=== PATIENT | male | born 1985 | race Native Hawaiian/Other Pacific Islander ===

== ENCOUNTER 2023-10-22 13:03 | Emergency (ER) | payer SELFPAY ==
[2023-10-22] MEDS: PHENobarbital 65 MG/ML VIAL 260 MG IV (13:15)
[2023-10-22] MEDS: ONDANSETRON 4 MG/2 ML INJ IV (13:15)
--- NOTE | 2023-10-22 13:16 | ED.ALCOHOL ---
HPI - Alcohol General Chief Complaint: Toxicology Problem Stated Complaint: ETOH withdrawl Time Seen by Provider: 10/22/23 13:14 History of Present Illness HPI narrative: Patient is a 38-year-old male with known alcohol abuse presenting today with anxiety and withdrawal symptoms. He reports that he drinks a 5th of vodka daily, he drank his normal amount yesterday he has not had anything to drink since last night. This morning was his quit date he has not had anything to drink but feels severe anxiety. He previously was prescribed gabapentin and propranolol when he last went through withdrawal. He is feeling very anxious but not tachycardic. He is wanting medication to detox at home. He previously went to a detox center he did not personally outpatient follow-up. He reports that he has pretty severe anxiety and drinks to help the anxiety Related Data Previous Rx's Medication Instructions Recorded chlordiazepoxide HCl 25 mg capsule 25 mg PO BID PRN alcohol 10/22/23 withdrawal #32 caps Allergies Allergy/AdvReac Type Severity Reaction Status Date / Time No Known Drug Allergies Allergy Verified 10/22/23 13:24 Patient History Social History Smoking Status: Current every day smoker Exam Initial Vital Signs Initial Vital Signs: Vital Signs Temperature 98.3 F 10/22/23 13:17 Pulse Rate 82 10/22/23 13:17 Respiratory Rate 16 10/22/23 13:17 Blood Pressure 174/94 H 10/22/23 13:17 Pulse Oximetry 96 10/22/23 13:17 Oxygen Delivery Method Room Air 10/22/23 13:17 GENERAL: Alert well-appearing 38-year-old HEENT: Head atraumatic,EOMI, pupils reactive, face symmetric, moist mucous membranes CARDIOVASCULAR: Regular rate and rhythm without murmurs, rubs or gallops. RESPIRATORY: Breath sounds equal bilaterally, no wheezes rales or rhonchi. ABDOMEN: Soft, nontender. Normoactive bowel sounds all 4 quadrants. No guarding or rebound. EXTREMITIES: Normal range of motion, no clubbing or edema. Neurovascularly intact NEUROLOGICAL: Alert and oriented x4 SKIN: Warm, dry, no laceration, no petechiae, no rashes or lesions. Course Orders Ordered: ED Orders 10/22/23 13:05 Acetaminophen Stat Complete Blood Count AUTO DIFF Stat Comprehensive Metabolic Panel Stat Ethanol (ETOH) Stat Free T4, Direct Thyroxine Stat Salicylate Stat Thyroid Stimulating Hormone Stat 10/22/23 14:06 [place] [facility] [place] Word Processing Operator Stat 10/22/23 14:50 Urine Drug Screen, Rapid Stat Discontinued Medications Sodium Chloride (Normal Saline 0.9%) 1,000 mls @ 1,000 mls/hr IV BOLUS ONE Stop: 10/22/23 14:49 Last Infusion: 10/22/23 16:07 Dose: Infused Documented By: Admin: 10/22/23 13:54 Dose: 1,000 mls/hr Documented By: MARIANA Lorazepam (Lorazepam 2 Mg/Ml Inj) 1 mg IV NOW ONE Stop: 10/22/23 13:38 Last Admin: 10/22/23 13:53 Dose: 1 mg Documented By: MARIANA Ondansetron HCl (Ondansetron 4 Mg/2 Ml Inj) 4 mg IV NOW ONE Stop: 10/22/23 13:11 Last Admin: 10/22/23 13:15 Dose: 4 mg Documented By: MARIANA Phenobarbital (Phenobarbital 65 Mg/Ml Vial) 260 mg IV NOW ONE Stop: 10/22/23 13:11 Last Admin: 10/22/23 13:15 Dose: 260 mg Documented By: MARIANA Vital Signs Vital signs: Vital Signs - 8 hr 10/22/23 13:17 10/22/23 14:00 10/22/23 14:00 Temperature 98.3 F Pulse Rate 82 78 Respiratory Rate 16 16 Blood Pressure 174/94 H 134/90 Pulse Oximetry 96 95 Oxygen Delivery Method Room Air 10/22/23 14:30 10/22/23 14:30 10/22/23 14:50 Temperature Pulse Rate 81 82 Respiratory Rate 17 12 Blood Pressure 143/85 H Pulse Oximetry 96 96 Oxygen Delivery Method 10/22/23 14:50 10/22/23 15:00 10/22/23 15:00 Temperature Pulse Rate 90 Respiratory Rate 21 Blood Pressure 147/88 H 149/92 H Pulse Oximetry 96 Oxygen Delivery Method 10/22/23 16:08 Temperature 98.3 F Pulse Rate 81 Respiratory Rate 16 Blood Pressure 141/83 H Pulse Oximetry 96 Oxygen Delivery Method Room Air MDM - Alcohol Lab Data 10/22/23 13:05 10/22/23 13:05 Labs: Lab Results 10/22/23 10/22/23 Range/Units 13:05 14:50 WBC 10.9 (4.5-11.0) X10^3/uL RBC 4.49 L (4.5-5.9) X10^6/uL Hgb 14.6 (13.5-17.5) g/dL Hct 43.2 (41-53) % MCV 96.2 (80-100) fL MCH 32.4 (26-34) PG MCHC 33.7 (30-36) % RDW 13.5 (11.6-14.8) % Plt Count 313 (150-400) X10^3/uL Neut % (Auto) 69.0 (50-75) % Lymph % (Auto) 17.8 L (25-40) % [place] % (Auto) 10.9 (3-14) % Eos % (Auto) 1.6 L (2-4) % Baso % (Auto) 0.7 (0-2) % Neut # (Auto) 7500 H (9115-0994) /uL Lymph # (Auto) 1900 (1765-7201) /uL [place] # (Auto) 1200 H (0-900) /uL Eos # (Auto) 200 (0-450) /uL Baso # (Auto) 100 (0-100) /uL Sodium 142 (137-145) mmol/L Potassium 3.6 (3.4-5.1) mmol/L Chloride 104 (98-107) mmol/L Carbon Dioxide 29 (22-32) mmol/L BUN 8 L (9-20) mg/dL Creatinine 0.71 (0.66-1.25) mg/dL Estimated GFR > 60 (>60) mL/min BUN/Creatinine Ratio 11.3 (6-22) Glucose 127 H (70-100) mg/dL Calcium 9.8 (8.4-10.2) mg/dL Total Bilirubin 2.0 H (0.2-1.3) mg/dL AST 186 H (17-59) IU/L ALT 114 H (<50) IU/L Alkaline Phosphatase 101 (38-126) U/L Total Protein 8.4 H (6.3-8.2) g/dL Albumin 5.0 (3.5-5.0) g/dL Globulin 3.4 (1.7-4.1) g/dL Albumin/Globulin Ratio 1.5 (1.0-2.8) TSH 1.31 (0.47-4.68) uIU/mL Free T4 0.83 (0.78-2.19) ng/dL Salicylates < 1.0 (<20) mg/dL U Opiates 300ng/mL cut Negative (Negative) Ur Oxycodone Screen Negative (Negative) Urine Methadone Screen Negative (Negative) Acetaminophen < 10 (10-30) ug/mL Ur Barbiturates Screen Negative (Negative) U Tricyclic Antidepress Negative (Negative) Ur Phencyclidine Scrn Negative (Negative) Ur Amphetamines Screen Negative (Negative) U Methamphetamines Scrn Negative (Negative) Ur MDMA Scrn (Ecstasy) Negative (Negative) U Benzodiazepines Scrn Negative (Negative) Urine Cocaine Screen Negative (Negative) U Marijuana (THC) Screen Negative (Negative) Urine pH Normal (Normal) Urine Specific [place] Normal (Normal) Ethyl Alcohol < 10 ( - 10) mg/dL Ur Creatinine Normal (Normal) Urine Dip Bedside Urine Glucose Negative Bedside Urine Bilirubin - Negative Bedside Urine Ketone + 15 Urine Specific [place] 1.015 Bedside Urine Occult Blood - Negative Bedside Urine pH 6.5 Bedside Urine Protein - Negative Bedside Urine Urobilinogen - Negative Bedside Urine Nitrite - Negative Bedside Urine Leukocytes - Negative Esterase MDM Narrative Medical decision making narrative: Patient is a 38-year-old male with history of alcohol abuse presenting today with eggs IUD and mild withdrawal symptoms. He has not had drink since last night alcohol level is negative. He has not tachycardic he is given phenobarbital and Ativan which have helped him significantly. He reports that he drinks a 5th of liquor daily. Long straight for discussion with him and his partner about needing detox and risk of alcohol withdrawal complications. He plan to quit date which was today he took Tuesday off work and he is planning on going through withdrawal this weekend. Discussed how he would do better often detox strongly encouraged him for intensive outpatient treatment. Blood work reviewed: WBC 10.9, hemoglobin 14.6, hematocrit 43.2, MCV 96.2, 313, sodium 142, potassium 3.6, chloride 104, carbon dioxide 29, BUN 8, creatinine 0.7, glucose 127, bilirubin 2.0, AST 186, ALT 114, Patient has no right upper quadrant pain but he does have elevated bilirubin and liver enzymes likely secondary to alcohol abuse. Patient was evaluated by social work he declined detox for him as well Due to the fact that patient set a quit date he is determined to quit drinking alcohol I will give him some Librium discussed with patient's partner and patient that he may still have withdrawal symptoms while taking this medication. Strongly encouraged him to come back at any time for any sort of symptoms including seizure hallucinations and severe anxiety. Both patient and partner understand Discharge Plan Departure Patient Disposition: Home Clinical Impression: Alcohol withdrawal, Alcohol abuse Instructions: DI for Delirium Tremens, DI for Alcohol Use Disorder Activity Restrictions/Additional Instructions: *You have been diagnosed with alcohol withdrawal *What to do: I strongly encourage you to get intensive outpatient treatment. Do not drive or operate heavy machinery while taking medication. You are still high at risk for seizures and complications including while withdrawing alcohol *Continue to take medications as directed Librium 50 mg every 4 hours for day 1, 50 mg every 6 hours day 2, 50 mg every 8 hours day 3, 50 mg every 12 hours day 2, 50 mg once *Follow up with your primary care provider in 2-3 days or call [phone] *Return to ER if you should have shaking confusion seizures, hallucinations or any new, worsening or concerning symptoms CONTROLLED SUBSTANCE DISCHARGE (Narcotoic/benzodiazepine/Flexeril/Phenergan) 1. You have been prescribed narcotic medications, it does have acetaminophen/Tylenol/paracetamol in it, DO NOT TAKE MORE THAN 4,00mg in 24 hours of Tylenol. TRAMADOL DOES NOT CONTAIN TYLENOL 2. Please understand that we cannot provide further refills of narcotics, benzodiazepines or controlled substances through the ED and her pain management will need to be through your provider. 3. While on these medications you cannot drive or operate heavy machinery. 4. You cannot sign legal documents or perform any duties such as this. 5. As long as you're taking opiate pain medications he should also be taking a stool softener such as Colace, Dulcolax, MiraLAX or prune juice, to help avoid constipation. Prescriptions: New chlordiazepoxide HCl 25 mg capsule 25 mg PO BID PRN (Reason: alcohol withdrawal) Qty: 32 0RF Rx Instructions: Day 1: 50 mg Q 4h, day 2 50 mg q.6 hr, day 3 50 mg Q 8h, Day 4 50mg q 12hr, day 5 50 mg x1 Referrals: Miscellaneous,Doctor, MD [Primary Care Provider] - Stand Alone Forms: Patient Portal/API
[2023-10-22 13:17] VITALS: BP 174/94; PULSE 82; RESP 16; TEMP 36.8; O2SAT 96; BMI 23.7
[2023-10-22 13:22] LABS: Add Manual Diff / Slide Review NO; Basophils Absolute Auto 100 /uL (0-100); Basophils Percent Auto 0.7 % (0-2); Eosinophils Absolute Auto 200 /uL (0-450); Eosinophils Percent Auto 1.6 % (2-4); Hematocrit 43.2 % (41-53); Hemoglobin 14.6 g/dL (13.5-17.5); Lymphocytes Absolute Auto 1900 /uL (1100-4500); Lymphocytes Percent Auto 17.8 % (25-40); Mean Corpuscular HGB Conc 33.7 % (30-36); Mean Corpuscular Hemoglobin 32.4 PG (26-34); Mean Corpuscular Volume 96.2 fL (80-100); Monocytes Absolute Auto 1200 /uL (0-900); Monocytes Percent Auto 10.9 % (3-14); Neutrophils Absolute Auto 7500 /uL (1500-7000); Platelet Count 313 X10^3/uL (150-400); Red Blood Cell Count 4.49 X10^6/uL (4.5-5.9); Red Cell Distribution Width 13.5 % (11.6-14.8); White Blood Cell Count 10.9 X10^3/uL (4.5-11.0)
--- NOTE | 2023-10-22 13:23 | PC.NURSE ---
Pt reports one episode of vomiting this morning but does not current have nausea.
[2023-10-22 13:38] LABS: Acetaminophen < 10 ug/mL (10-30); Alanine Aminotransferase 114 IU/L (<50); Albumin Globulin Ratio 1.5 (1.0-2.8); Alkaline Phosphatase 101 U/L (38-126); Aspartate Aminotransferase 186 IU/L (17-59); BUN Creatinine Ratio 11.3 (6-22); Blood Urea Nitrogen 8 mg/dL (9-20); Calcium 9.8 mg/dL (8.4-10.2); Carbon Dioxide 29 mmol/L (22-32); Chloride 104 mmol/L (98-107); Estimated Glomerular Filt Rate > 60 mL/min (>60); Ethanol (ETOH) < 10 mg/dL; Globulin 3.4 g/dL (1.7-4.1); Glucose 127 mg/dL (70-100); HEMOLYSIS < 15 (0-50); Potassium 3.6 mmol/L (3.4-5.1); Salicylate < 1.0 mg/dL (<20); Sodium 142 mmol/L (137-145); Total Protein 8.4 g/dL (6.3-8.2)
[2023-10-22] MEDS: LORazepam 2 MG/ML INJ 1 MG IV (13:53)
[2023-10-22] MEDS: SODIUM CHLORIDE 0.9% 1,000 ML 1000 ML IV (13:54)
[2023-10-22 14:00] VITALS: BP 134/90; PULSE 78; RESP 16; O2SAT 95
[2023-10-22 14:10] LABS: Free T4, Direct Thyroxine 0.83 ng/dL (0.78-2.19)
[2023-10-22 14:24] LABS: Thyroid Stimulating Hormone 1.31 uIU/mL (0.47-4.68)
[2023-10-22 14:30] VITALS: BP 143/85; PULSE 81; RESP 17; O2SAT 96
[2023-10-22 14:50] VITALS: BP 147/88; PULSE 82; RESP 12; O2SAT 96
[2023-10-22 15:00] VITALS: BP 149/92; PULSE 90; RESP 21; O2SAT 96
[2023-10-22 15:04] LABS: UR Morphine/Opiate cutoff 300 Negative (Negative); Ur Creatinine Normal (Normal); Ur Specific Gravity Normal (Normal); Urine Amphetamines Negative (Negative); Urine Barbiturates Negative (Negative); Urine Benzodiazepines Negative (Negative); Urine Cocaine Negative (Negative); Urine MDMA Negative (Negative); Urine Methadone Negative (Negative); Urine Methamphetamines Negative (Negative); Urine Oxycodone Negative (Negative); Urine Phencyclidine Negative (Negative); Urine Tetrahydrocannabinol Negative (Negative); Urine Tricyclic Antidepressant Negative (Negative); Urine pH Normal (Normal)
--- NOTE | 2023-10-22 15:46 | CM.SWNOTE ---
ED RESIDENCE COUNSELOR Assessment RESIDENCE COUNSELOR - Child Care Education Coordinator Assessment RESIDENCE COUNSELOR - Child Care Education Coordinator Assessment Start: 10/22/23 13:48 Freq: Status: Active Protocol: Document 10/22/23 14:44 BDL (Rec: 10/22/23 15:46 BDL [id number]) RESIDENCE COUNSELOR/Child Care Education Coordinator Assessment Time Spent with Patient Start date 10/22/23 Visit Start Time 14:00 End date 10/22/23 Visit End Time 14:40 Total time Care Management spent on 40 min patient visit-in minutes Substance Abuse Screening Include Onset, Duration, Intensity Presenting Problem Pt present to the ed due to ETOH withdrawals including tremors. Pt reports his last drink was between 9-10 pm last night and he typically drinks 1/5th of vodka a day. Precipitating Event(s) PT reports he began drinking at age 25 casually w/ friends. Pt reports that him and his partner briefly lived w/ a a man who was an alcoholic and partier. It was easy to drink and just alliance party. It was disclosed that throughout pt's 's he would carry a bottle around w/ him to sandy. Pt's partner stated I didn't think anything of it back then but looking back it was a problem. Pt reports that w/ his work it is easy to have a casual drink here or there. Pt reports that he tends to drink when he is bored just to have something to do and also acknowledges anxiety as a reason for drinking. Patient Strengths Determination/commitment. Current Behavioral Health Provider(s) Pt does not have any current Include Facility, Provider, Ph. # providers. Pt reports that in 2021 he was set up w/ [facility] to follow up with [facility] but did not end up following up w/ those services. Family Hx of Behavioral Abuse Pt and partner both report that they come from families where casual drinking is normal. Pt did not endorse any other substance use. Rehab Facilities? ((Date(s), Location(s) Pt reports in February 2022 he ) was in a hospital in [place] for detox services. Pt did not remember the name of the facility. History of Withdrawal? Seizures? Pt has hx of withdrawals including tremors and extreme anxiety. Pt denies hx of seizures. Longest Period of Sobriety Never, it's always just been a habit of mine to come home from work and have a drink... 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 Psychosocial information & Support Family has the support of his Systems partner, his mom, as well as friends. Per pt's partner he has all the supports he just needs to want it too. 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 Pt reports that he has been impacted by side effects of his alcohol use while working. Pt also reports that he could be doing more on the computer for work instead of having a drink at times. Legal Concerns Legal Matters - Outstanding Issues None reported. Mental Status Orientation (Person/Place/Time) a/o x3. Stated Mood Tired. Affect (Congruent with Mood?) Dysphoric, flat, labile, congruent w/ mood. Thought Content - Specify/Describe There are alcoholics then Obsessions, Delusions, Hallucinations there is being alcohol dependent... I'd put myself in that class. I just get this pressure behind my eyes and then I need a drink. Anxiety. Thought Processes (Wtajyat-Afetmclq-Cnsi Logical/Coherent. Gpsuuiny-Vmlscvfr-Lqdhwtjcxw- Jrjeqxwjwiyjem-Dmwcspp-Szcfodddyesi- Thought Blocking) Speech (Jzbfce-Bavl-Kclchjg-Rapid-Soft- Slow/soft. Loud-Pressured) Motor (Jnxbgc-Uiovftomy-Xpzm-Other) Slow. Insight (Ozmi-Pucy-Gzqs/Limited) Poor/limited. Judgement (Uiax-Rgug-Wtpd/Limited) Poor/limited. Impulse Control (Adequate-Impaired) Impaired. Memory (Rsulsrsli-Mztxwn-Pzqjed, Intact. Impaired-Intact) Concentration (Intact-Impaired) Impaired. Pt fell asleep mid conversation w/ partner. Attention (Intact-Impaired) Intact. Behavior (Appropriate-Inappropriate) Appropriate. Risk Assessment Suicidal Ideation (Plan) No Homicidal Ideation (Plan) No Comment Pt denies current SI/HI. Pt reports semi recently having thoughts of suicide. Pt made comments such as It's normal to have some thoughts of suicide or like what you would do when you who gets what . When asked about a plan or intent pt responded I could get there. Pt denies ever having intent or a plan but partner was concerned he may be down playing the situation. Intervention Intervention Pt is a 38 y/o female who presents to the ED for ETOH withdrawal. Pt lives in [place] w/ his partner who is present at bedside. RESIDENCE COUNSELOR enters the room to meet w/ pt. Pt is lying in bed w/ heavy eyes. Pt's partner is at bedside. RESIDENCE COUNSELOR speaks w/ pt who reports he is feeling tired. PT discloses to RESIDENCE COUNSELOR hx of alcohol use starting at age 25. Pt reports it began as casual drinking and slowly turned into a daily habit. Pt reports things got worse when living in [place] w/ a friend that was described as an alcoholic. Pt's partner disclosed throughout his 20's pt would carry a bottle of alcohol w/ him everywhere he went. Pt believes his primary reason for drinking is anxiety. I don't know if it's anxiety because I have that or if it's anxiety about my next drink. RESIDENCE COUNSELOR reflected w/ pt who then stated he believes it is the alcohol. Pt's partner is concerned that even if the anxiety goes away from alcohol that she can see other little stressors in his life that could lead to a relapse. Pt reports he feels like 3/10 he would have a relapse in the near future. Pt's partner stated her concern is Much higher. Pt reports in February of 2022 he was in an inpatient detox facility connected to a mental health hospital. Pt believes this was in [place] but could not remember the facility name. Pt reports he began receiving services at [facility] that same year but did nto follow up w/ outpatient services. Pt also reported that in that same year he attended one AA meeting but chose not to follow up. That was interesting it wasn't what I thought it was. Pt reports that he has needed a drink in the morning to help settle his nerves and also reports that family and friends have been annoyed and concerned w/ his alcohol use. It is reported that pt's family are casual drinkers. When asked by his partner if he could manage going to a gathering w/ alcohol pt responded I'd be more concerned if there wasn't alcohol. Pt and partner have recently moved back to [place] after living in [place]. 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 Pt reports that he would like to go home w/ medications and manage on his own. RESIDENCE COUNSELOR discussed possible other options including detox and those benefits. Pt declined and insisted on going home w/ meds. It is the opinion of this RESIDENCE COUNSELOR that the pt would greatly benefit from inpatient detox w / follow up MH/ANMOL services. RESIDENCE COUNSELOR discussed this w/ ED provider who indicated agreement and understanding. Plan RA Plan Pt to be further evaluated medically. MATTIE Fagan, WOLF
[2023-10-22 16:08] VITALS: BP 141/83; PULSE 81; RESP 16; TEMP 36.8; O2SAT 96
== END 2023-10-22 16:09 | disposition home or self-care (01) ==
PROVIDERS: Physician Assistant Medical; Emergency Provider Emergency Medicine
DX: F10.139 Alcohol abuse with withdrawal, unspecified (principal)
CPT/HCPCS: 36415; 80053; 80305; 80320; 80329; 81003; 84439; 84443; 85025; 96374; 96375; 99284; G0480; J2060; J2405; J2560

== ENCOUNTER 2024-03-17 08:45 | Emergency (ER) | payer SELFPAY ==
[2024-03-17] VITALS (9 sets, daily range): BP systolic 105–139; BP diastolic 64–96; PULSE 68–87; RESP 14–18; TEMP 36.8; O2SAT 97–99; BMI 23.7
--- NOTE | 2024-03-17 08:53 | ED.GENADULT ---
HPI - General Adult General Chief complaint: Toxicology Problem Stated complaint: detoxing off alcohol Time Seen by Provider: 03/17/24 08:53 History of Present Illness HPI narrative: Patient is a 38-year-old male with past medical history of alcohol abuse comes into the ED for evaluation of multiple complaints. States that yesterday he did drink a 5th of vodka, states that he was sober week prior to that. States that he is trying to detox from this. Currently not complaining of any suicidal or homicidal ideations. During evaluation started complaining of some chest tightness but no shortness of breath. He denies any other symptoms such as headache visual disturbances fever chills nausea vomiting abdominal pain or any other GI/ some time. States that he did go through outpatient detox in the past. Related Data Previous Rx's Medication Instructions Recorded chlordiazepoxide HCl 25 mg capsule 25 mg PO BID PRN alcohol 10/22/23 withdrawal #32 caps Allergies Allergy/AdvReac Type Severity Reaction Status Date / Time No Known Drug Allergies Allergy Verified 03/17/24 08:53 Review of Systems Review of Systems Narrative: HEENT: Denies headache, eye drainage, eye irritation, head trauma, sore throat, voice change, positive for alcohol abuse Cardiovascular: Positive for chest pain Respiratory: Denies any shortness of breath, cough, wheeze, stridor GI/: Denies any abdominal pain, nausea, vomiting, diarrhea, bright red blood per rectum, melanotic stools, urinary frequency, urinary retention, dysuria, hematuria MSK: Denies any joint pain, muscle pains, swelling Skin: Denies any rashes, lesions, discoloration Neuro: Denies any headache, lightheadedness, dizziness, fainting, weakness Psych: Denies SI/HI Patient History Social History Smoking Status: Current every day smoker Smoking Status: Current every day smoker tobacco type: cigarettes alcohol intake frequency: 3 or more drinks per day Alcohol type: hard liquor Substance Use Type: marijuana Exam Narrative Exam Narrative: General: Cooperative, comfortable, well-developed, not in acute distress HEENT: Normocephalic, atraumatic, PERRLA, normal sclera, eyelids normal, Neck: Active full range of motion, atraumatic Chest: Normal to inspection, negative crepitus, no overlying erythema ecchymosis Respiratory: Normal respiratory effort, not in acute respiratory distress, clear to auscultation bilaterally negative cough, wheeze, tachypnea, rhonchi, rales Cardiology: Regular rate rhythm negative gallop, murmur, rubs GI/: Normal to inspection, soft, nonrigid, no tenderness to palpation, exam deferred MSK: Full range of active range of motion of all 4 extremities, atraumatic Skin: No rashes lesions noted Neuro: Alert awake oriented x3, moves all 4 extremities spontaneously, cranial nerves intact, able to answer all questions appropriately follows commands appropriately Psych: Cooperative, negative suicidal or homicidal ideations, positive anxiety Initial Vital Signs Initial Vital Signs: Vital Signs Temperature 98.2 F 03/17/24 08:46 Pulse Rate 83 03/17/24 08:46 Respiratory Rate 15 03/17/24 08:46 Blood Pressure 139/86 03/17/24 08:46 Pulse Oximetry 98 03/17/24 08:46 Oxygen Delivery Method Room Air 03/17/24 08:46 Course Orders Ordered: ED Orders 03/17/24 08:55 Acetaminophen Stat Complete Blood Count AUTO DIFF Stat Comprehensive Metabolic Panel Stat Ethanol (ETOH) Stat Hepatic (Liver) Panel Stat Lipase Stat MAG [Magnesium] Stat Salicylate Stat Troponin & CK Cardiac Panel Stat 03/17/24 08:59 XR chest 1V Stat EKG-12 Lead Stat 03/17/24 09:00 Urine Drug Screen, Rapid Stat 03/17/24 10:56 Consult to [facility] - Lodging Facilities Attendant Stat Sodium Chloride (Normal Saline 0.9%) 1,000 mls @ 150 mls/hr IV CONT JAXSON Last Admin: 03/17/24 09:07 Dose: 150 mls/hr Documented By: RB Discontinued Medications Lorazepam (Lorazepam 2 Mg/Ml Inj) 2 mg IV NOW ONE Stop: 03/17/24 09:11 Last Admin: 03/17/24 09:15 Dose: 2 mg Documented By: RB Ondansetron HCl (Ondansetron 4 Mg/2 Ml Inj) 4 mg IV NOW ONE Stop: 03/17/24 09:12 Last Admin: 03/17/24 09:15 Dose: 4 mg Documented By: RB Vital Signs Vital signs: Vital Signs - 8 hr 03/17/24 08:46 03/17/24 08:49 03/17/24 08:49 Temperature 98.2 F Pulse Rate 83 86 Respiratory Rate 15 Blood Pressure 139/86 139/96 H Pulse Oximetry 98 98 Oxygen Delivery Method Room Air 03/17/24 09:00 03/17/24 09:00 03/17/24 09:30 Temperature Pulse Rate 87 Respiratory Rate 15 Blood Pressure 138/89 138/87 Pulse Oximetry 99 Oxygen Delivery Method 03/17/24 09:30 03/17/24 10:00 03/17/24 10:00 Temperature Pulse Rate 70 68 Respiratory Rate 14 16 Blood Pressure 113/64 Pulse Oximetry 97 97 Oxygen Delivery Method 03/17/24 10:30 03/17/24 10:30 03/17/24 11:00 Temperature Pulse Rate 76 76 Respiratory Rate 15 15 Blood Pressure 105/66 Pulse Oximetry 97 97 Oxygen Delivery Method 03/17/24 11:00 03/17/24 11:30 03/17/24 11:30 Temperature Pulse Rate 80 Respiratory Rate 18 Blood Pressure 114/71 110/69 Pulse Oximetry 97 Oxygen Delivery Method Medical Decision Making Differential Diagnosis Differential Diagnosis: ACS, pneumonia, electrolyte abnormality, alcohol withdrawal, alcohol intox Condition is:: Improved Medical Records Medical records reviewed: Yes I reviewed the patient's medical records. Lab Data Lab results reviewed: Yes I reviewed the patient's lab results. 03/17/24 08:55 03/17/24 08:55 Labs: Lab Results 03/17/24 Range/Units 08:55 WBC 12.5 H (4.5-11.0) X10^3/uL RBC 4.51 (4.5-5.9) X10^6/uL Hgb 14.3 (13.5-17.5) g/dL Hct 41.5 (41-53) % MCV 92.1 (80-100) fL MCH 31.6 (26-34) PG MCHC 34.3 (30-36) % RDW 14.9 H (11.6-14.8) % Plt Count 301 (150-400) X10^3/uL Neut % (Auto) 67.9 (50-75) % Lymph % (Auto) 22.8 L (25-40) % Sharp % (Auto) 5.6 (3-14) % Eos % (Auto) 3.0 (2-4) % Baso % (Auto) 0.7 (0-2) % Neut # (Auto) 8500 H (1343-5327) /uL Lymph # (Auto) 2900 (0369-7998) /uL Sharp # (Auto) 700 (0-900) /uL Eos # (Auto) 400 (0-450) /uL Baso # (Auto) 100 (0-100) /uL Sodium 140 (137-145) mmol/L Potassium 4.0 (3.4-5.1) mmol/L Chloride 103 (98-107) mmol/L Carbon Dioxide 24 (22-32) mmol/L BUN 14 (9-20) mg/dL Creatinine 0.89 (0.66-1.25) mg/dL Estimated GFR > 60 (>60) mL/min BUN/Creatinine Ratio 15.7 (6-22) Glucose 96 (70-100) mg/dL Calcium 9.3 (8.4-10.2) mg/dL Magnesium 1.9 (1.6-2.3) mg/dL Total Bilirubin 1.3 (0.2-1.3) mg/dL Conjugated Bilirubin 0.0 (0.0-0.3) md/dL Unconjugated Bilirubin 1.0 (0.0-1.1) mg/dL AST 70 H (17-59) IU/L ALT 46 (<50) IU/L Alkaline Phosphatase 79 (38-126) U/L Total Creatine Kinase 584 H (55-170) U/L Troponin I < 0.012 (0.01-0.034) ng/mL Total Protein 7.7 (6.3-8.2) g/dL Albumin 4.9 (3.5-5.0) g/dL Globulin 2.8 (1.7-4.1) g/dL Albumin/Globulin Ratio 1.8 (1.0-2.8) Lipase 118 (23-300) U/L Salicylates < 1.0 (<20) mg/dL Acetaminophen < 10 (10-30) ug/mL Ethyl Alcohol 148 H ( - 10) mg/dL ECG Data Attestation: I personally reviewed and interpreted this ECG as follows: Interpretation: EKG interpreted ED physician, sinus 85 beats per minute, QTC 468, normal axis, nonspecific ST changes, no STEMI MDM Narrative Medical decision making narrative: Patient 38-year-old male past medical history of alcohol abuse comes into the ED for possible withdrawal. Patient was complaining of withdrawal symptoms, states that his last alcohol ingestion was yesterday, at time of evaluation patient with CIWA 7, patient with lab work unremarkable for any electrolyte abnormalities, ACS. Patient was seen by social work here and states that he would like at home/outpatient detox was given resources here. Strict return precautions were given and was discharged home with outpatient follow-up. Discharge Plan Departure Patient Disposition: Home Clinical Impression: Alcoholic intoxication Qualifiers: Complication of substance-induced condition: uncomplicated Qualified Code(s): F10.920 - Alcohol use, unspecified with intoxication, uncomplicated Activity Restrictions/Additional Instructions: Please follow-up with the resources for your detox. Please read the discharge instructions sheet carefully and bring all papers to all doctor follow-up visits, as it may contain information that your doctor may want to see. Disease processes change and evolve, if your symptoms worsen or if you develop any new symptoms that are concerning to you please return for evaluation. Your evaluation today does not show any evidence of any life-threatening/serious illnesses requiring admission to the hospital or surgery. Please follow-up with your doctor for re-evaluation in approximately 1 day. Seek immediate medical attention for any worrisome symptoms. Prescriptions: No Action chlordiazepoxide HCl 25 mg capsule 25 mg PO BID PRN (Reason: alcohol withdrawal) Qty: 32 0RF Rx Instructions: Day 1: 50 mg Q 4h, day 2 50 mg q.6 hr, day 3 50 mg Q 8h, Day 4 50mg q 12hr, day 5 50 mg x1 Referrals: Miscellaneous,Doctor, MD [Primary Care Provider] - Stand Alone Forms: Patient Portal/API
--- NOTE | 2024-03-17 08:59 | DI.RAD.S_ITS ---
PROCEDURE: XR CHEST 1V INDICATIONS: chest pain TECHNIQUE: One view of the chest was acquired. COMPARISON: None. FINDINGS: Surgical changes and devices: None. Lungs and pleura: Lungs are clear. No pleural effusions or pneumothorax. Mediastinum: Mediastinal contours appear normal. Heart size is normal. Bones and chest wall: No suspicious bony lesions. Overlying soft tissues appear unremarkable. IMPRESSION: No acute cardiopulmonary process. Dictated by: Jose J Moody M.D. on 03/17/2024 at 8:32 Approved by: Jose J Moody M.D. on 03/17/2024 at 8:34
--- NOTE | 2024-03-17 08:59 | EKG_ITS ---
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
[2024-03-17] MEDS: SODIUM CHLORIDE 0.9% 1,000 ML 150 ML IV (09:07)
[2024-03-17 09:09] LABS: Add Manual Diff / Slide Review NO; Basophils Absolute Auto 100 /uL (0-100); Basophils Percent Auto 0.7 % (0-2); Eosinophils Absolute Auto 400 /uL (0-450); Hematocrit 41.5 % (41-53); Hemoglobin 14.3 g/dL (13.5-17.5); Lymphocytes Absolute Auto 2900 /uL (1100-4500); Lymphocytes Percent Auto 22.8 % (25-40); Mean Corpuscular HGB Conc 34.3 % (30-36); Mean Corpuscular Hemoglobin 31.6 PG (26-34); Mean Corpuscular Volume 92.1 fL (80-100); Monocytes Absolute Auto 700 /uL (0-900); Monocytes Percent Auto 5.6 % (3-14); Neutrophils Absolute Auto 8500 /uL (1500-7000); Neutrophils Percent Auto 67.9 % (50-75); Platelet Count 301 X10^3/uL (150-400); Red Blood Cell Count 4.51 X10^6/uL (4.5-5.9); Red Cell Distribution Width 14.9 % (11.6-14.8); White Blood Cell Count 12.5 X10^3/uL (4.5-11.0)
[2024-03-17 09:15] LABS: Acetaminophen < 10 ug/mL (10-30); Alanine Aminotransferase 46 IU/L (<50); Albumin 4.9 g/dL (3.5-5.0); Albumin Globulin Ratio 1.8 (1.0-2.8); Alkaline Phosphatase 79 U/L (38-126); Aspartate Aminotransferase 70 IU/L (17-59); BUN Creatinine Ratio 15.7 (6-22); Bilirubin Total 1.3 mg/dL (0.2-1.3); Blood Urea Nitrogen 14 mg/dL (9-20); Calcium 9.3 mg/dL (8.4-10.2); Carbon Dioxide 24 mmol/L (22-32); Chloride 103 mmol/L (98-107); Creatine Kinase 584 U/L (55-170); Estimated Glomerular Filt Rate > 60 mL/min (>60); Globulin 2.8 g/dL (1.7-4.1); Glucose 96 mg/dL (70-100); HEMOLYSIS < 15 (0-50); Lipase 118 U/L (23-300); Sodium 140 mmol/L (137-145); Total Protein 7.7 g/dL (6.3-8.2)
[2024-03-17] MEDS: LORazepam 2 MG/ML INJ IV (09:15)
[2024-03-17] MEDS: ONDANSETRON 4 MG/2 ML INJ IV (09:15)
[2024-03-17 09:16] LABS: Ethanol (ETOH) 148 mg/dL; Magnesium 1.9 mg/dL (1.6-2.3); Salicylate < 1.0 mg/dL (<20)
[2024-03-17 09:27] LABS: Troponin I < 0.012 ng/mL (0.01-0.034)
--- NOTE | 2024-03-17 13:07 | CM.SWNOTE ---
ED MARKETING TRAFFIC MANAGER Note Patient is 38 y/o male who presents with concern for ETOH withdrawals (head pressure, shakiness, anxiety and nausea). Patient declines interest in going to detox. Patient states he drank a fifth of vodka last night and was sober for a week prior to that. Patient had similar presentation to the ED 6 months ago and chose to withdrawal from ETOH at home. MARKETING TRAFFIC MANAGER enters room to meet with patient, present with patient is patient's partner, patient presents as A/Ox4. Patient states I'm feeling much better. Patient denies current MH or ANMOL providers but endorses interest in outpatient, seeking sponsor and open to trying out AA. Patient declines triggers for drinking, and states that he drinks when he is bored and alone. Patient states that he works a lot so it was something magan he did when he was at home. MARKETING TRAFFIC MANAGER discusses relaxing activities and hobbies. Patient's partner presents as support and states that patient has a lot of friends that are supportive as well. Patient's partner talks about opening up with patient's friends as well. Patient has hx of going to detox in February 2022 at [facility] in [place], [place]. MARKETING TRAFFIC MANAGER provides patient with AA resources, list of ANMOL providers and Detox information, and information about getting established with Medicaid state insurance. Patient continues to endorse preference to d/c to home, MARKETING TRAFFIC MANAGER reviews patient with ED provider. Plan: patient to d/c to home upon medical clearance with partner, patient to f/u with ANMOL resources provided. NANCY Lozano
== END 2024-03-17 13:12 | disposition home or self-care (01) ==
PROVIDERS: Emergency Provider Student in an Organized Health Care Education/Training Program
DX: F10.129 Alcohol abuse with intoxication, unspecified (principal); Y90.6 Blood alcohol level of 120-199 mg/100 ml; R07.9 Chest pain, unspecified
CPT/HCPCS: 36415; 71045; 80053; 80076; 80320; 80329; 82550; 83690; 83735; 84484; 85025; 93005; 96361; 96374; 96375; 99284; G0480; J2060; J2405

== ENCOUNTER → 2025-07-09 07:27 | Outpatient (CLI) | payer OTHER, SELFPAY ==
[2025-07-09 07:57] LABS: Hematocrit 41.9 % (41-53); Hemoglobin 14.2 g/dL (13.5-17.5); Mean Corpuscular HGB Conc 34.0 % (30-36); Mean Corpuscular Hemoglobin 32.5 PG (26-34); Mean Corpuscular Volume 95.7 fL (80-100); Platelet Count 248 X10^3/uL (150-400)
[2025-07-09 08:09] LABS: Hemoglobin A1C% w Est Avg Glu 5.1 % (4.0-6.0)
[2025-07-09 08:35] LABS: Alanine Aminotransferase 96 IU/L (<50); Albumin 5.0 g/dL (3.5-5.0); Albumin Globulin Ratio 1.8 (1.0-2.8); Alkaline Phosphatase 72 U/L (38-126); Blood Urea Nitrogen 12 mg/dL (9-20); Calcium 9.2 mg/dL (8.4-10.2); Carbon Dioxide 24 mmol/L (22-32); Chloride 104 mmol/L (98-107); Cholesterol 209 mg/dL (140-199); Estimated Glomerular Filt Rate > 60 mL/min (>60); Globulin 2.8 g/dL (1.7-4.1); Glucose 105 mg/dL (70-99); HDL Cholesterol 104 mg/dL (40-60); HEMOLYSIS < 15 (0-50); Potassium 4.1 mmol/L (3.4-5.1); Sodium 140 mmol/L (137-145); Total Protein 7.8 g/dL (6.3-8.2); Triglycerides 62 mg/dL (35-150)
[2025-07-09 08:55] LABS: Gamma Glutamyl Transpeptidase 98 U/L (15-73)
[2025-07-09 09:26] LABS: Vitamin B12 Reflex MMA if <400 776 pg/mL (239-931)
[2025-07-09 09:42] LABS: Folate 4.7 ng/mL (2.76-20.0)
[2025-07-09 16:17] LABS: HIV 1 & 2 Ab/Ag 4th Gen Combo NEGATIVE (NEGATIVE); Hep C Virus Ab w/Reflex Quant NEGATIVE s/c (NEGATIVE)
== END ==
PROVIDERS: PCP Family Medicine; Referring Provider Family Medicine; Visit Provider Family Medicine
DX: Z13.9 Encounter for screening, unspecified (principal); F10.10 Alcohol abuse, uncomplicated
CPT/HCPCS: 36415; 80053; 80061; 82607; 82746; 82977; 83036; 85027; 86803; 87389